=== PATIENT | male | born 1935 | race Caucasian/White ===

== ENCOUNTER 2017-01-17 13:13 | Day surgery (SDC) | payer MEDICARE, BC ==
[~2017-01-17] VITALS: Ht 167.6 cm; Wt 50.0 kg
[2017-01-17] VITALS (7 sets, daily range): BP systolic 132–150; BP diastolic 60–72; PULSE 78–84; RESP 12–24; Ht 167.6 cm; Wt 50.0 kg
[~2017-01-17 13:13] MED LIST: ALLO100T PO; APIX5TAB PO; ASPI-664 PO; ATEN-51 PO; CALC667C PO; DOXY100V IVPB; FURO40TA4 PO; LEVO25TA53 PO; PANT40TA4 PO; SLOMAG PO; SODI650T PO; TAMS-14 PO; ZOLP5TAB6 PO
[2017-01-17 15:36] LABS: HEMATOCRIT 29.9 % (42.0-52.0); HEMOGLOBIN 9.4 g/dl (14.0-18.0); MEAN CORPUSCULAR HEMOGLOBIN 27.8 pg (29.0-33.0); MEAN CORPUSCULAR HGB CONC 31.6 g/dl (32.0-37.0); PLATELET COUNT 671 10^3/UL (140-440); RED CELL DISTRIBUTION WIDTH 28.9 % (11.5-14.5); UNCORRECTED WBC 27.5 10^3/ul (4.8-10.8); WHITE BLOOD COUNT 27.5 10^3/ul (4.8-10.8)
[2017-01-17 15:40] LABS: CONDITION 1; LH ANALYZER COMMENTS 1; SUSPECT 1
[2017-01-17 15:59] LABS: POTASSIUM 4.6 mmol/L (3.5-5.1)
[2017-01-17 16:01] LABS: CALCIUM 8.3 mg/dl (8.4-10.2); CREATININE 3.48 mg/dl (0.61-1.24)
[2017-01-17 16:07] LABS: BASOPHIL # 0.6 10^3/ul (0.0-0.1); EOSINOPHILS # 0.3 10^3/ul (0.0-0.5); LYMPHOCYTES # 1.1 10^3/ul (0.8-2.9); NEUTROPHIL # 25.3 10^3/ul (1.6-7.5)
--- NOTE | 2017-01-17 16:07 | RADRPT ---
PROCEDURE: XR Chest. CLINICAL INDICATION: Shortness of breath. TECHNIQUE: Single frontal view. COMPARISON: 08/26/2016. FINDINGS: There is a tunneled left internal jugular vein dialysis catheter with the tip in the lower superior vena cava/right atrium junction. The heart is mildly enlarged. Calcification is present in the aor ta consistent with atherosclerosis. There is a right basilar air space disease consistent with pneumonia, slightly worse than seen previ ously. Mild pulmonary edema is unchanged. There is a small right pleural effusion, slightly smaller than seen previously. There is no left pl eural effusion. There is no pneumothorax. IMPRESSION: 1. Tunneled dialysis catheter in satisfactory position. 2. Mild cardiomegaly and atherosclerosis. 3. Slightly worse right basilar pneumonia. 4. Mild pulmonary edema, unchanged. 5. Small right pleural effusion, slightly smaller than seen previously. RPTAT: QQ .Bridger Kerr MD, MD Date Time Electronically viewed and signed by .Bridger Kerr MD, on 01/17/2017 16:07 .R/
[2017-01-17 16:10] LABS: ANISOCYTOSIS 3+; HYPOCHROMASIA 1+; MICROCYTOSIS 2+; OVALOCYTES 2+; PLATELET ESTIMATE PLT APPEAR INCREASED; POIKILOCYTOSIS 3+; POLYCHROMASIA 1+; TEAR DROP CELLS 1+
[2017-01-17 16:23] LABS: ADD UMIC YES; URINE BILIRUBIN (Dip) NEGATIVE (NEGATIVE); URINE BLOOD (Dip) NEGATIVE (NEGATIVE); URINE COLOR LT. YELLOW (YELLOW); URINE GLUCOSE (Dip) NEGATIVE (NEGATIVE); URINE KETONES (Dip) NEGATIVE (NEGATIVE); URINE LEUKOCYTE ESTERASE (Dip) NEGATIVE (NEGATIVE); URINE NITRITE (Dip) NEGATIVE (NEGATIVE); URINE TOTAL PROTEIN (Dip) 2+ (NEGATIVE); URINE UROBILINOGEN (Dip) 0.2 E.U./dL (0.1-1.0)
[2017-01-17] MEDS ORDERED: SOD CHLORIDE 0.9% 500 ML ONE (20:01)
[2017-01-17] MEDS ORDERED: LIDOCAINE 1% (MDV) 20 ML INJ ONE (20:01)
[2017-01-17] MEDS ORDERED: IODIXANOL LOCM 50 ML BTL ONE (20:01)
--- NOTE | 2017-01-17 20:44 | OPR ---
DATE OF OPERATION: PREOPERATIVE DIAGNOSIS: Dysfunctional left arm arteriovenous fistula. POSTOPERATIVE DIAGNOSIS: Dysfunctional left arm arteriovenous fistula. OPERATION PERFORMED: 1. Left arm fistulogram. 2. Left central venogram. 3. Brachial artery angiogram. 4. Interpretation and supervision of the fistulogram, central venogram, and arteriogram. SURGEON: Natan Rabago MD ANESTHESIA: Local. CONSENT: Risks, benefits, complications, alternative therapies explained to the patient and the fam tray, consent obtained. OPERATIVE TECHNIQUE: The patient was placed in supine position, prepped and draped in usual sterile fashion. Lidocaine 1% was used throughout the operation for local anesthesia. Access was gained i n the left arm cephalic vein fistula. Fistulogram was done. Central venogram was done. Arteriogra m was done. Interpretation and supervision of the fistulogram revealed cephalic vein normal, axillary vein mark l, subclavian vein normal, innominate vein normal, superior vena cava normal. Arterial anastomosis was also examined in 2 different angles. It appeared to be completely patent w ith a diameter of about 5 mm. The catheter was then removed and entrance site was closed using a si ngle 3-0 Vicryl suture in interrupted fashion. The patient tolerated procedure well. Dictated By: NATAN DOVE/DINO Conf#: [id number] DID#: [id number]
[2017-01-17 20:55] LABS: BACTERIA,URINE FEW; URINE RBCS NONE SEEN /HPF (0)
--- NOTE | 2017-01-19 15:50 | RADRPT ---
Vent Rate: 83 bpm RR Interval: 0 msec WA Interval: 176 msec QRS Duration: 88 msec QT Interval: 384 msec QTC Interval: 451 msec P-R-T [place]: 55 - -31 - 68 degrees Normal sinus rhythm Left axis deviation Abnormal ECG Electronically Signed By: Devaughn Davenport [id number]
== END 2017-01-17 20:45 | disposition home or self-care (01) ==
LOC: SDS 13:13
PROVIDERS: ATTEND Student in an Organized Health Care Education/Training Program
DX: T82.898A Other specified complication of vascular prosthetic devices, implants and grafts, initial encounter (principal); Y84.8 Other medical procedures as the cause of abnormal reaction of the patient, or of later complication, without mention of misadventure at the time of the procedure; Y92.89 Other specified places as the place of occurrence of the external cause; I12.0 Hypertensive chronic kidney disease with stage 5 chronic kidney disease or end stage renal disease; N18.6 End stage renal disease
CPT/HCPCS: 36901; 71010; 80048; 81001; 85025; 93005; J1644; J7040; Q9967; 81003